=== PATIENT | female | born 1975 | race Caucasian/White ===

== ENCOUNTER 2023-05-06 09:04 | Day surgery (SDC) | payer OTHER, SELFPAY ==
[2023-04-19 12:45] VITALS: BMI 28.7
[2023-05-06 10:10] VITALS: BP 137/83; PULSE 74; RESP 18; TEMP 36.9; O2SAT 100
--- NOTE | 2023-05-06 10:13 | P.PNAN_ITS ---
Anes - Initial Pre Proc Eval Procedure: Operation Date: 05/06/23 11:30 Proposed Procedures p Screening Colonoscopy - Husam Jolley MD Date/Time: 05/06/23 10:13 Surgeon: Husam Jolley MD Pre Op Diagnosis: Neoplasm Screening Patient Data Age: 47 Gender: F Height: 1.74 m Weight: 88.45 kg Last Vital Signs Temp 36.9 C 05/06/23 10:10 Pulse 74 05/06/23 10:10 Resp 18 05/06/23 10:10 BP 137/83 05/06/23 10:10 Pulse Ox 100 05/06/23 10:10 O2 Del Method Room Air 05/06/23 10:10 Allergies Allergy/AdvReac Type Severity Reaction Status Date / Time No Known Allergies Allergy Verified 05/06/23 10:11 Home Medications Medication Instructions Recorded Confirmed Type rimegepant 75 mg disintegrating 75 mg PO ONCE PRN migraine 03/07/23 05/06/23 Rx tablet (Nurtec ODT) headache #10 tabs Patient hx anesthesia problems: none Family hx anesthesia problems: none Results Review: All pre-operative results and documents have been reviewed as part of the pre- operative evaluation. [facility] Past Medical History Medical History BMI 28.0-28.9,adult BMI 29.0-29.9,adult Surgical History Surgical History (Updated 05/06/23 @ 10:13 by Seamus Blandon MD) History of endometrial ablation History of tubal ligation Family History Family History Father No problems noted. 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 Informed Consent: The patient's anesthetic plan and its attendant risks and benefits were discussed with the patient/family/POA. Questions were solicited and answers provided to the satisfaction of the patient/family/POA.
--- NOTE | 2023-05-06 10:33 | P.HP_ITS ---
History of Present Illness History of Present Illness Consent: Risks, benefits, and alternatives have been discussed and questions answered. Patient agrees to proceed with procedure. Chief complaint: Neoplasm Screening Narrative: Bety Morgan is a 47 year old female Presents for screening colonoscopy. Patient has current weight appetite is are normal. Patient denies abdominal pain. She has had no bleeding. Family history noncontributory. Review of Systems Review of Systems: Review of systems noncontributory. [facility] Past Medical History Medical History BMI 28.0-28.9,adult BMI 29.0-29.9,adult Surgical History Surgical History (Updated 05/06/23 @ 10:13 by Seamus Blandon MD) History of endometrial ablation History of tubal ligation Family History Family History Father No problems noted. 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 Gender identity (if verbalized by the patient): Female Spiritual care concerns: No Meds Home Medications and Allergies Home Medications Medication Instructions Recorded Confirmed Type rimegepant 75 mg disintegrating 75 mg PO ONCE PRN migraine 03/07/23 05/06/23 Rx tablet (Nurtec ODT) headache #10 tabs Allergies Allergy/AdvReac Type Severity Reaction Status Date / Time No Known Allergies Allergy Verified 05/06/23 10:11 Vital Signs Vital Signs - 24 hr 05/06/23 10:10 Temperature 98.5 F Pulse Rate 74 Respiratory Rate 18 Blood Pressure 137/83 Pulse Oximetry 100 Oxygen Delivery Room Air Exam Narrative: Physical exam reveals patient signs stable. HEENT exam is unremarkable. Patient is anicteric. Lungs are clear to auscultation and to percussion heart is without murmur or extra sounds. Abdomen bowel sounds are present soft nontender with no organomegaly. Digital external rectal exam normal. Assessment and Plan Assessment and plan (1) Screening for colon cancer: Code(s): Z12.11 - Encounter for screening for malignant neoplasm of colon Status: Acute Assessment and Plan: Presents for screening colonoscopy. She appears to be at average risk for colon polyps.
[2023-05-06] MEDS: LACTATED RINGERS 1,000 ML 150 ML IV CONT (10:39)
[2023-05-06 11:26] VITALS: BP 88/46; PULSE 64; RESP 18; O2SAT 100
--- NOTE | 2023-05-06 11:35 | WPDANESPN ---
Anes - Prog Note Post-Op Date/Time: 05/06/23 11:35 Cardiovascular status: normal Respiratory status: normal Airway patency: baseline Mental status: baseline Post-Op hydration status: normal Vital Signs: Last Vital Signs Temp 36.9 C 05/06/23 10:10 Pulse 64 05/06/23 11:26 Resp 18 05/06/23 11:26 BP 88/46 L 05/06/23 11:26 Pulse Ox 100 05/06/23 11:26 O2 Del Method Room Air 05/06/23 11:26 Pain Score (VAS): 0/10 I/O: Intake & Output 05/05/23 05/06/23 05/06/23 23:59 07:59 15:59 Intake Total 600 Balance 600 Patient Feedback: Patient satisfied with anesthetic care.
[2023-05-06 11:36] VITALS: BP 111/76; PULSE 64; RESP 17; O2SAT 100
[2023-05-06 11:46] VITALS: BP 110/62; PULSE 61; RESP 18; O2SAT 100
== END 2023-05-06 12:23 | disposition home or self-care (01) ==
PROVIDERS: PCP Family Medicine; Visit Provider Internal Medicine Gastroenterology
PROC: 0DJD8ZZ Inspection of Lower Intestinal Tract, Via Natural or Artificial Opening Endoscopic (ICD-10-PCS; CPT 45378; principal; 2023-05-06 11:30)
DX: Z12.11 Encounter for screening for malignant neoplasm of colon (principal); K64.8 Other hemorrhoids
CPT/HCPCS: 45378